=== PATIENT | female | born 2000 | race Caucasian/White ===

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

== ENCOUNTER 2018-02-18 22:30 | Emergency (ER) | payer SELFPAY ==
[~2018-02-18] VITALS: Ht 160 cm; Wt 45.0 kg
[~2018-02-18 22:30] MED LIST changes: -CYCL10TA PO; -DICL75TA PO; +MACR100C2 PO
[2018-02-18 22:31] VITALS: BP 111/56; PULSE 103; RESP 18; TEMP 98.3; O2SAT 97
--- NOTE | 2018-02-18 22:57 | PD ---
HPI . Lump Chief Complaint: Lump, Cyst, Hernia Time Seen by Provider: 22:53 Travel History International Travel<30 days: No Contact w/Intl Traveler<30days: No Traveled to known affect area: No History of Present Illness HPI Patient presents with chief complaint of a mass in the left breast. Onset was 1 month ago. Progressively worsening. No modifying factors. PFSH Past Medical History Medical History: Denies Significant Hx Diminished Hearing: No Immunizations Current: Yes Tetanus Vaccination: > 5 Years Influenza Vaccination: No ?: Not LMP: 01/30/18 : 0 Past Surgical History Surgical History: No Previous Surgery Social History Alcohol Use: No Tobacco Use: Yes (/ PPD) Substance Use: No Allergies-Medications (Allergen,Severity, Reaction): Coded Allergies: No Known Allergies (Unverified Adverse Reaction, Unknown, 02/18/18) Reported Meds & Prescriptions Reported Meds & Active Scripts Active No Active Prescriptions or Reported Medications Review of Systems Except as stated in HPI: all other systems reviewed are Neg Physical Exam Narrative GENERAL: Awake and alert and in no acute distress. SKIN: Warm and dry. She has a large, freely mobile mass in the left upper quadrant of the left breast. There are no skin changes. There is no nipple discharge. HEAD: Normocephalic/atraumatic. EYES: Pupils are equal. Extraocular movements are intact. NECK: Normal range of motion. CARDIOVASCULAR: Regular rate and rhythm. RESPIRATORY: Nonlabored respirations. MUSCULOSKELETAL: Atraumatic. NEUROLOGICAL: Nonfocal. PSYCHIATRIC: Appropriate mood and affect. Data Data Last Documented VS Vital Signs Date Time Temp Pulse Resp B/P (MAP) Pulse Ox O2 Delivery O2 Flow Rate FiO2 02/18/18 22:31 98.3 103 18 111/56 (74) 97 Orders Orders Ed Discharge Order (02/18/18 22:54) MDM Medical Decision Making Medical Screen Exam Complete: Yes Emergency Medical Condition: Yes Differential Diagnosis Differential diagnosis includes but is not limited to cyst, abscess, fibrocystic disease, breast cancer Narrative Course This patient presents with a mass in her left breast. There are no skin changes and there is no nipple discharge. The patient is being discharged with instructions to follow-up at the [facility]. Diagnosis Primary Impression: Breast mass, left Referrals: [facility] Patient Instructions: General Instructions Departure Forms: Tests/Procedures Scripts No Active Prescriptions or Reported Meds Disposition: 01 DISCHARGE HOME Condition: Stable Danyelle Agustin MD February 18, 2018 22:57
== END 2018-02-18 23:07 | disposition home or self-care (01) ==
LOC: PHED 22:30
DX: N63.20 Unspecified lump in the left breast, unspecified quadrant (principal); F17.200 Nicotine dependence, unspecified, uncomplicated
CPT/HCPCS: 99281

== ENCOUNTER 2018-03-09 20:56 | Emergency (ER) | payer SELFPAY ==
[~2018-03-09] VITALS: Ht 160 cm; Wt 45.7 kg
[2018-03-09 21:05] VITALS: BP 128/68; PULSE 97; RESP 16; TEMP 98.7; O2SAT 99
== END 2018-03-09 22:05 | disposition left against medical advice (07) ==
LOC: PHED 20:56 → PHEFT 22:05
DX: J02.9 Acute pharyngitis, unspecified (principal); Z53.21 Procedure and treatment not carried out due to patient leaving prior to being seen by health care provider
CPT/HCPCS: 99281